=== PATIENT | female | born 1985 | race African-American/Black ===

== ENCOUNTER 2024-02-11 17:52 | Emergency (ER) | payer OTHER ==
[~2024-02-11] VITALS: Ht 157.5 cm; Wt 59.1 kg
[~2024-02-11 17:52] MED LIST: ACET-66 PO; MEDR150D9 IM
[2024-02-11 18:01] VITALS: BP 107/80; PULSE 82; RESP 20; TEMP 98.9
[2024-02-11 20:38] LABS: COVID AG,FIA SOURCE NASAL SWAB
[2024-02-11] MEDS: ONDANSETRON HCL 4 MG/2 ML VIAL IM ONE (20:42)
[2024-02-11] MEDS: MORPHINE SULFATE 4 MG/ML SYRINGE IM ONE (20:42)
[2024-02-11] MEDS: IBUPROFEN 600 MG TABLET PO ONE (20:49)
[2024-02-11 21:01] LABS: INFLUENZA TYPE A NEGATIVE FOR TYPE A (NEGATIVE); INFLUENZA TYPE B NEGATIVE FOR TYPE B (NEGATIVE); SARS-COV2 (COVID) ANTIGEN,FIA Negative (Negative)
[2024-02-11 21:01] LABS: BASOPHILS % (AUTO) 0.5 % (0.0-2.0); HEMATOCRIT 35.6 % (36-46); HEMOGLOBIN 11.7 g/dL (12.0-16.0); LYMPHOCYTES # (AUTO) 1.6 K/uL (1.0-4.8); LYMPHOCYTES % (AUTO) 17.5 % (22.0-44.0); MEAN CORPUSCULAR HEMOGLOBIN 29.3 pg (26.0-34.0); MEAN CORPUSCULAR HGB CONC 32.8 G/dL (31.0-37.0); MEAN CORPUSCULAR VOLUME 89 fL (80-100); MONOCYTES # (AUTO) 0.5 K/uL (0.1-1.0); MONOCYTES % (AUTO) 5.2 % (2.0-9.0); NEUTROPHILS # (AUTO) 6.8 K/uL (1.8-7.7); NEUTROPHILS % (AUTO) 75.8 % (40.0-70.0); PLATELET COUNT (AUTO) 286 K/uL (150-450); RED BLOOD CELL COUNT(AUTO) 3.99 MIL/uL (4.00-5.20); RED CELL DISTRIBUTION WIDTH 13.7 % (11.5-14.5)
[2024-02-11 21:11] LABS: ANION GAP 7 mmol/L (8-16); CALCIUM, TOTAL 8.4 mg/dL (8.8-10.5); CARBON DIOXIDE 29 mmol/L (22-29); CHLORIDE 101 mmol/L (98-107); CREATININE 0.74 mg/dL (0.60-1.30); GLOMERULAR FILTR. RATE CALC > 60 mL/min (>60); GLUCOSE,RANDOM 90 mg/dL (70-110); POTASSIUM 3.8 mmol/L (3.5-5.1); SODIUM SERUM 137 mmol/L (136-145); UREA NITROGEN, BLOOD 10 mg/dL (7-18)
[2024-02-11] MEDS ORDERED: HYDR-4062 PO (21:35)
[2024-02-11] MEDS ORDERED: GUAIFDM PO (21:35)
[2024-02-11] MEDS ORDERED: ONDA-104 PO (21:35)
[2024-02-11] MEDS ORDERED: IBUP-1554 PO (21:35)
== END 2024-02-11 21:50 | disposition home or self-care (01) ==
LOC: EMS 17:57
DX: S80.862A Insect bite (nonvenomous), left lower leg, initial encounter (principal); J06.9 Acute upper respiratory infection, unspecified; R51.9 Headache, unspecified; Z98.51 Tubal ligation status; Z20.822 Contact with and (suspected) exposure to COVID-19; W57.XXXA Bitten or stung by nonvenomous insect and other nonvenomous arthropods, initial encounter; Y93.89 Activity, other specified; Y92.89 Other specified places as the place of occurrence of the external cause; Y99.8 Other external cause status
CPT/HCPCS: 99285; 70450; 87426; 80048; 84703; 85025; 87804; 36415; 96372; J2270; J2405